=== PATIENT | female | born 1965 | race Caucasian/White ===

== ENCOUNTER 2017-09-20 07:42 | Day surgery (SDC) | payer MEDICAID ==
[~2017-09-20] VITALS: Ht 177.8 cm; Wt 91.0 kg
[2017-09-20] VITALS (7 sets, daily range): BP systolic 99–132; BP diastolic 58–77
[2017-09-20] MEDS ORDERED: LIDOcaine 1% 30ml preserv. free vial SQ STA (08:05)
[2017-09-20] MEDS ORDERED: normal saline 1000ml 1,000 ML IV PRN (08:15)
[2017-09-20] MEDS ORDERED: albumin (human) 25% 100 ML IV solution IV PRN (08:15)
[2017-09-20] MEDS ORDERED: SPIR50TA3 PO (08:16)
[2017-09-20] MEDS ORDERED: LACT10SO PO (08:16)
[2017-09-20] MEDS ORDERED: FURO40TA4 PO (08:16)
[2017-09-20] MEDS ORDERED: MAGN400C PO (08:16)
[2017-09-20] MEDS ORDERED: POTA10TA15 PO (08:16)
[2017-09-20] MEDS ORDERED: RIFA550T PO (08:16)
== END 2017-09-20 10:25 | disposition home or self-care (01) ==
LOC: SSTAY O 07:42
PROVIDERS: ATTEND Radiology Diagnostic Radiology
DX: K70.31 Alcoholic cirrhosis of liver with ascites (principal); F10.21 Alcohol dependence, in remission; Z88.1 Allergy status to other antibiotic agents; Z79.899 Other long term (current) drug therapy; Z86.14 Personal history of Methicillin resistant Staphylococcus aureus infection; Z98.890 Other specified postprocedural states
CPT/HCPCS: 49083; A6257; J3490; J7030; P9047